=== PATIENT | female | born 1985 | race Caucasian/White ===

== ENCOUNTER 2019-06-22 19:49 | Emergency (ER) | payer SELFPAY ==
[~2019-06-22 19:49] MED LIST: Iopamidol 370 76% 100 ML VIAL ONE
[2019-06-22 20:10] LABS: #Basophils 0.1 thou/uL (0.0-0.2); #Eosinphils 0.1 thou/uL (0.0-0.7); #Lymphocytes 1.9 thou/uL (1.20-3.40); #Monocytes 0.5 thou/uL (0.11-0.59); #Neutrophils 7.1 thou/uL (1.40-6.50); %Basophils 1.1 % (0.0-1.0); %Eosinophils 0.6 % (0.0-10.0); %Lymphocytes 19.6 % (21.0-51.0); %Monocytes 5.5 % (0.0-10.0); %Neutrophils 73.1 % (42.0-75.0); Hemoglobin 14.3 g/dL (12.0-16.0); Mean Corpuscular HGB CONC 32.3 g/dL (32.0-36.0); Mean Corpuscular Hemoglobin 28.8 pg (27.0-31.0); Mean Corpuscular Volume 89.1 fL (78.0-98.0); Mean Platelet Volume 7.1 fL (7.4-10.4); Platelet Count 361 thou/uL (130-400); RBC Distribution Width 11.6 % (11.5-14.5); Red Blood Cell (RBC) Count 4.96 mill/uL (4.20-5.40); White Blood Cell (WBC) Count 9.7 thou/uL (4.8-10.8)
[2019-06-22 20:26] LABS: BHCG - Serum Negative (NEGATIVE); Pregs Control Background? CLEAR/WHITE (CLR/WHITE); Pregs Control Bar Appear? YES (CONTROL BAR)
[2019-06-22 20:32] LABS: ALT (SGPT) 60 U/L (8-55); AST (SGOT) 26 U/L (5-34); Albumin 4.4 g/dL (3.5-5.0); Alkaline Phosphatase 35 U/L (40-110); Anion Gap 16 mmol/L (10-20); BUN (Urea Nitrogen) 19 mg/dL (7.0-18.7); Bilirubin, Total 0.3 mg/dL (0.2-1.2); Calc. Creatinine Clearance 0 mL/min (70-130); Calcium 9.4 mg/dL (7.8-10.44); Carbon Dioxide 24 mmol/L (22-29); Chloride 103 mmol/L (98-107); Estimated GFR-MDRD 80; Globulin 3.1 g/dL (2.4-3.5); Glucose 90 mg/dL (70-105); Potassium 4.6 mmol/L (3.5-5.1); Protein, Total 7.5 g/dL (6.0-8.3); Sodium 138 mmol/L (136-145)
--- NOTE | 2019-06-22 20:39 | CT ---
Exam: CT brain PROVIDED CLINICAL HISTORY: Trauma COMPARISON: None FINDINGS: The ventricular system is normal in size and morphology. No evidence for intracranial hemorrhage or mass effect. The extracranial soft tissues and osseous structures demonstrate no evidence for an acute abnormality. IMPRESSION: No evidence for intracranial hemorrhage or mass effect.
--- NOTE | 2019-06-22 20:47 | CT ---
CT CERVICAL SPINE: 06/22/19 INDICATIONS: Trauma. FINDINGS: Cervical vertebrae maintain normal height and alignment. There are degenerative changes seen, most pr ominent at the C5-6 level where there is disc narrowing and spurring. 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 No evidence of fracture identified. IMPRESSION: There are degenerative changes most prominent at C5-6 as described. No acute fracture identified. POS: [facility]
[2019-06-22] MEDS ORDERED: Sodium Chloride 0.9% 1,000 ML ONE (20:49)
--- NOTE | 2019-06-22 20:50 | CT ---
EXAM: CT chest, abdomen and pelvis with IV contrast PROVIDED CLINICAL HISTORY: Trauma FINDINGS: The heart, pericardium and great vessels demonstrate no evidence for traumatic abnormality. Lungs are free of significant opacity. No pleural fluid or pneumothorax apparent. Several nonspecific nodules in the left breast. The solid abdominal organs demonstrate no evidence for traumatic abnormality. No bowel dilatation, in flammatory fat stranding, free fluid or free air apparent. Moderate urinary bladder distention. The major vascular structures appear normal. The osseous structures demonstrate no acute abnormality. Thoracic and lumbar spine sagittal and coron al reconstructions demonstrate normal spinal alignment and maintenance of vertebral body heights. IMPRESSION: No evidence for traumatic abnormality.
[2019-06-22 21:12] LABS: Bilirubin Negative (Negative); Blood, Urine Negative (Negative); Clarity Clear (Clear); Glucose, Urine (Dipstick) Negative (Negative); Leukocyte Negative (Negative); Nitrite Negative (Negative); Protein, Urine (Dipstick) Negative (Neg-Trace); Urobilinogen 0.2 mg/dL (Less than 2)
[2019-06-22] MEDS ORDERED: Ibuprofen 800 MG TAB ONE (21:45)
[2019-06-22] MEDS ORDERED: Cyclobenzaprine 10 MG TAB ONE (21:45)
== END 2019-06-22 21:50 | disposition home or self-care (01) ==
LOC: MADERS 19:49
DX: S06.0X0A Concussion without loss of consciousness, initial encounter (principal); S16.1XXA Strain of muscle, fascia and tendon at neck level, initial encounter; V48.5XXA Car driver injured in noncollision transport accident in traffic accident, initial encounter
CPT/HCPCS: 70450; 71260; 72125; 74177; 80053; 81003; 84703; 85025; 94760; 96360; G0390; J7050; Q9967